=== PATIENT | male | born 1990 | race Caucasian/White ===

== ENCOUNTER 2018-12-23 10:39 | Observation (INO) | payer BC ==
[~2018-12-23] VITALS: Ht 177.8 cm; Wt 85.3 kg
[~2018-12-23 10:39] MED LIST: ALEVE220 MG PO; LANTUS 3ML100 UNITS/ SC; NOVOLOG100 UNITS1 SC
--- OUTSIDE RECORDS SUMMARY | 2018-12-23 10:42 | XMS REPORT | Summary of Care ---
Author Author Abhay Mckenzie, Griselda Organization Unknown Address [facility] Phone Unavailable Care Team Providers Care Ship Pilot Name Role Phone JONATHAN Elena, NATALIYA Unavailable Unavailable RODDY Elena, HERRERA Unavailable Unavailable VISHNU Marroquin, RENÉ Unavailable Unavailable RODDY NATANAEL PA, HERRERA GÓMEZ Unavailable Unavailable BECK CALVO PA, KIMBERLY Unavailable Unavailable DIANNE CALVO, YESICA Unavailable Unavailable KADY CALVO PA, CRISTOFER BURNS Unavailable Unavailable Unavailable Unavailable Functional Status Name Dates Details Functional status health issues are not documented Status: Name Dates Details Cognitive status health issues are not documented Status: Problems Name Dates Details Diabetic retinopathy screening (V80.2, Z13.5) Status: Active Encounter to establish care (V65.8, Z76.89) Status: Active Obesity (BMI 30-39.9) (278.00, E66.9) Status: Active Arthralgia of right foot (719.47, M25.571) Status: Active Pain of middle finger (729.5, M79.646) Status: Active Arthralgia of hand, right (719.44, M25.541) Status: Active Noncompliance with medications (V15.81, Z91.14) Status: Active Right ankle pain (719.47, M25.571) Status: Active Arthralgia of right knee (719.46, M25.561) Status: Active 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 * Quantity: 1 Refills: 2 RODDY HERRERA Elena * Start : 10-Sep-2017 Active 100 Unit Box NovoLOG FlexPen 100 UNIT/ML Subcutaneous Solution Pen-injector inject 10 u sq tid before meals + correction:MDD 50 units * Quantity: 1 Refills: 1 JONATHAN P.A., NATALIYA * Start : 16-Sep-2017 Active 5 x 3 ML Pen Harris Microlet Lancets MISC use to check blood sugars 4x/day * Quantity: 2 Refills: 3 RENÉ MARES M.D. * Start : 16-Sep-2017 Active 100 Unit Package Cefdinir 300 MG Oral Capsule TAKE 1 CAPSULE EVERY 12 HOURS DAILY. * Quantity: 20 Refills: 0 JONATHAN P.A., NATALIYA * Start : 15-Aug-2018 End : 25-Aug-2018 Active Ofloxacin 0.3 % Otic Solution 5 drops BID to left ear * Quantity: 1 Refills: 0 JONATHAN P.A., NATALIYA * Start : 15-Aug-2018 Active 10 ML Bottle Allergies and Adverse Reactions Name Dates Details No Known Drug Allergies (Allergy) Status: Active Past Medical History Name Dates Details History of diabetes mellitus (V12.29, Z86.39) Status: Resolved History of gout (V12.29, Z87.39) Status: Resolved Procedures Procedure Dates Details Procedures not documented Immunization Name Dates Details Varicella Disease on: Feb-1992 Family History Name Dates Details Family history of lung cancer (V16.1, Z80.1) Status: Active Name Dates Details Family history of malignant neoplasm of breast (V16.3, Z80.3) Status: Active Name Dates Details Family history of asthma (V17.5, Z82.5) Status: Active Name Dates Details Family history of diabetes mellitus (V18.0, Z83.3) Status: Active Family history of drug abuse (V61.42, Z81.3) Status: Active Family history of cardiac disorder (V17.49, Z82.49) Status: Active Family history of alcoholism (V17.0, Z81.1) Status: Active Name Dates Details Family history of diabetes mellitus (V18.0, Z83.3) Status: Active Family history of gout (V18.19, Z82.69) Status: Active Social History Name Dates Details - Status: Name Dates Details Never smoker Vital Signs Date Test Result Details [id number] Physical Findings 3 Status: Comments: PHQ-9 Adult Depression Screening [id number] BP Systolic 110 mm[Hg] Status: Comments: Location: LUE; Position: Sitting BP Diastolic 80 mm[Hg] Status: Comments: Location: LUE; Position: Sitting Height 70 in Status: Weight 231.5625 lb Status: Body Mass Index Calculated 33.23 kg/m2 Status: Body Surface Area Calculated 2.22 m2 Status: Temperature 97.9 f Status: Comments: Method: Temporal Respiration Rate 16 /min Status: Heart Rate 91 /min Status: Physical Findings 6 Status: Comments: Pain Scale [id number] Physical Findings 0 Status: Comments: Alcohol Screen - How many times in the past yr have you had 5 (for M) or 4 (for F) or 4 (for all > 65yrs) or more drinks in a day? Results Date Description Value Details [id number] [O] Hemoglobin A1c (in office) HEMOGLOBIN A1c 14.3 (Abnormal) Plan of Care Name Dates Details Planned Observations Planned Goals not documented Interventions Provided Medication Changes* Cefdinir 300 MG Oral Capsule - Start * Lantus SoloStar 100 UNIT/ML Subcutaneous Solution Pen-injector - Renew * NovoLOG FlexPen 100 UNIT/ML Subcutaneous Solution Pen-injector - Renew * Ofloxacin 0.3 % Otic Solution - Start Labs/Procedures/Imaging* [O] Hemoglobin A1c (in office); Done: 15 Aug 2018 * Tobacco Use Screening; Done: 15 Aug 2018 * Tobacco Use Screening; Done: 15 Aug 2018 Instructions* Patient Specific Education Given; Done: 15 Aug 2018 Plan* monitor sx. Discussed risk of malignant OE. * make f/u appt with dr. mares. * COunt carbs, monitor BS. Instructions Name Dates Details Instructions not documented Encounters Appointment; HERRERA PEREYRA P.A. Encounter Diagnosis: Problem not documented On: 10-Sep-2017 14:30 Appointment; RENÉ MARES M.D. Encounter Diagnosis: Problem not documented On: 16-Sep-2017 8:00 Appointment; [address] Encounter Diagnosis: Problem not documented On: 20-Sep-2017 8:00 Appointment; RENÉ MARES M.D. Encounter Diagnosis: Problem not documented On: 23-Oct-2017 14:20 Appointment; RENÉ MARES M.D. Encounter Diagnosis: Problem not documented On: 03-Dec-2017 8:40 Appointment; KIMBERLY SOLARES M.D. Encounter Diagnosis: Problem not documented On: 05-Mar-2018 15:30 Appointment; KIMBERLY SOLARES M.D. Encounter Diagnosis: Problem not documented On: 08-Apr-2018 16:00 Appointment; YESICA DEAN M.D. Encounter Diagnosis: Problem not documented On: 26-Jun-2018 9:00 Appointment; NATALIYA CASTILLO P.A. Encounter Diagnosis: Problem not documented On: 15-Aug-2018 11:15
[2018-12-23 11:31] LABS: BASOPHILS # (AUTO) 0.1 (0.0-0.1); BASOPHILS % 0.9 % (0.0-1.0); EOSINOPHILS # (AUTO) 0.3 (0.0-0.4); EOSINOPHILS % 2.4 % (0.0-6.0); HEMATOCRIT 47.2 % (38.2-49.6); LYMPHOCYTES # (AUTO) 2.8 (1.0-3.2); LYMPHOCYTES % 22.2 % (18.0-39.1); MEAN CORPUSCULAR HEMOGLOBIN 28.4 pg (28-32); MEAN CORPUSCULAR HGB CONC 33.9 g/dL (31-35); MEAN CORPUSCULAR VOLUME 83.8 fL (81-99); MONOCYTES # (AUTO) 1.4 (0.2-0.8); MONOCYTES % 11.2 % (4.4-11.3); NEUTROPHILS % 62.5 % (38.7-80.0); PLATELET COUNT 366 x10e3/uL (140-360); RED BLOOD COUNT 5.63 x10e6/uL (4.3-5.7); RED CELL DISTRIBUTION WIDTH 12.7 % (11.7-14.4)
[2018-12-23 11:50] LABS: ALANINE AMINOTRANSFERASE 25 IU/L (0-55); ALBUMIN 3.8 g/dL (3.5-5.0); ALBUMIN/GLOBULIN RATIO 0.8 (0.8-2.0); ALKALINE PHOSPHATASE 98 IU/L (40-150); ANION GAP 19.2 mmol/L (8-16); BLOOD UREA NITROGEN 11 mg/dL (7-26); BUN/CREATININE RATIO 10 (6-25); CALCIUM 10.8 mg/dL (8.4-10.2); CARBON DIOXIDE 23 mmol/L (22-29); CHLORIDE 96 mmol/L (98-107); CREATININE, SERUM 1.09 mg/dL (0.72-1.25); EST GLOMERULAR FILTRATION RATE > 60 ML/MIN (60-); GLUCOSE 370 mg/dL (74-118); POTASSIUM 4.2 mmol/L (3.5-5.1); SODIUM 134 mmol/L (136-145)
[2018-12-23] MEDS ORDERED: INSULIN REGULAR, HUMAN 100 UNIT/1 ML 3ML VIAL ONE ×3 (12:09→13:50)
[2018-12-23] MEDS ORDERED: CLINDAMYCIN PHOS 900MG/ 50ML 50 ML IV ONE (13:17)
[2018-12-23] MEDS ORDERED: TRAMADOL HCL 50 MG TAB PO PRN (13:30)
[2018-12-23] MEDS ORDERED: HYDROMORPHONE 1MG/1ML INJ IV PRN (13:30)
--- NOTE | 2018-12-23 13:52 | Operative Report ---
DATE OF PROCEDURE: 12/23/2018 SURGEON: Keyur Best MD PREOPERATIVE DIAGNOSES: 1. Left neck abscess. 2. Uncontrolled blood sugars. 3. Diabetes. PROCEDURES PERFORMED: Incision and drainage of abscess, and debridement of necrotic tissue of abscess of the left posterior neck. ANESTHESIA: General endotracheal. ESTIMATED BLOOD LOSS: Minimal. DRAINS: None. COMPLICATIONS: None. INDICATION AND FINDINGS: A 28-year-old insulin-dependent diabetic, admitted with an abscess of the left neck. The patient had a history of a cyst for a year. He was told to watch it. Now, that the cyst has become infected, developed an abscess and hyperglycemia. He is admitted for incision and drainage of abscess and overnight observation for blood sugar control. INTRAOPERATIVE FINDINGS: An infected epidermal inclusion cyst in the left posterior neck triangle all the way to the cyst lining and pus was drained. The patient will need a second procedure once the acute process has resolved to remove the remaining cyst to prevent recurrence. DESCRIPTION OF PROCEDURE: With the patient lying on the operative table in the supine position, after administration of general anesthesia, he was prepped and draped for incision and drainage of abscess of the left neck. His head was turned to the right. The skin overlying the fluctuant area was incised. The cavity entered, loculations broken down, debris was removed. Some of the lining was removed, but not all of it. After we removed that, we cauterized the bleeding points, irrigated with Betadine and saline, and then packed the wound with iodine. Sterile dressing was applied. The patient tolerated the procedure well, was taken to recovery room in stable condition. MD LEW GonzalezR/MODL /[id number]
[2018-12-23] MEDS ORDERED: FENTANYL CITRATE/PF 100MCG/2 ML INJ ONE ×2 (14:34→19:59)
[2018-12-23] MEDS ORDERED: PROPOFOL IV EMULSION 10 MG/ML 20 ML VIAL ONE (17:44)
[2018-12-23] MEDS ORDERED: ESMOLOL HCL 100MG/10ML 10 MG/ML VIAL ONE (17:44)
[2018-12-23] MEDS ORDERED: DEXAMETHASONE SOD PHOS INJ 4 MG/ML VIAL ONE (17:44)
[2018-12-23] MEDS ORDERED: ONDANSETRON HCL INJ 2MG/ML 2ML 2 MG/ML VIAL ONE (17:44)
[2018-12-23] MEDS ORDERED: LIDOCAINE HCL 2% LOCAL INJ 5 ML SDV VIAL INJ ONE (17:44)
[2018-12-23] MEDS ORDERED: LEVOFLOXACIN 500MG/D5W 100ML 100 ML IV SCH (18:00)
[2018-12-23] MEDS: INSULIN REGULAR, HUMAN 100 UNIT/1 ML 3ML VIAL SQ SCH (18:00)
--- NOTE | 2018-12-23 18:48 | NUR ---
The pt. was received form PACU and is in bed awake. Blood glucose is 338 and insulin coverage has been given. Vital signs are 138/96.
[2018-12-23 19:05] VITALS: BP 163/90
[2018-12-23] MEDS: SODIUM CHLORIDE 0.9% 1000ML 1,000 ML IV SCH (19:19)
[2018-12-23] MEDS ORDERED: MIDAZOLAM HCL 2 MG/2 ML VIAL ONE (19:59)
[2018-12-23 20:00] VITALS: BP 163/90
[2018-12-23] MEDS: CLINDAMYCIN PHOS 900MG/ 50ML 50 ML IV SCH (22:05)
[2018-12-24] VITALS: BP 153/99
[2018-12-24 04:00] VITALS: BP 141/97
[2018-12-24] MEDS: CLINDAMYCIN PHOS 900MG/ 50ML 50 ML IV SCH (05:06)
[2018-12-24] MEDS: SODIUM CHLORIDE 0.9% 1000ML 1,000 ML IV SCH ×2 (05:07→09:28)
[2018-12-24] MEDS: INSULIN REGULAR, HUMAN 100 UNIT/1 ML 3ML VIAL SQ SCH ×2 (05:09)
[2018-12-24 05:52] LABS: ANION GAP 18.1 mmol/L (8-16); BLOOD UREA NITROGEN 11 mg/dL (7-26); BUN/CREATININE RATIO 13 (6-25); CALCIUM 10.3 mg/dL (8.4-10.2); CARBON DIOXIDE 23 mmol/L (22-29); CHLORIDE 99 mmol/L (98-107); CREATININE, SERUM 0.85 mg/dL (0.72-1.25); EST GLOMERULAR FILTRATION RATE > 60 ML/MIN (60-); GLUCOSE 313 mg/dL (74-118); POTASSIUM 4.1 mmol/L (3.5-5.1); SODIUM 136 mmol/L (136-145)
--- NOTE | 2018-12-24 07:09 | NUR ---
Report given to day nurse. patient is resting comfortably in bed. bed is in lowest position and call rodriguez is within reach.
[2018-12-24 07:30] VITALS: BP 170/110
--- NOTE | 2018-12-24 08:00 | NUR ---
call placed to MD concerning patient's high blood pressure, per MD recheck when he arrives.
--- NOTE | 2018-12-24 08:15 | NUR ---
rechecked blood pressure and it is improving, per MD he believes it is pain, IV fluids and possibly white coat syndrome. per patient is okay to discharge and will follow up with him tomorrow in his office.
[2018-12-24 08:16] VITALS: BP 170/110
[2018-12-24 08:30] VITALS: BP 158/100
[2018-12-24] MEDS ORDERED: INSULIN GLARGINE 100 UNITS/ML VIAL SC SCH (09:00)
--- NOTE | 2018-12-24 11:35 | NUR ---
patient alert and oriented, discharge instructions given, patient verbalized understanding. IV discontinued, catheter in tact and small dressing applied. patient to be wheeled out to personal auto for friend to drive home.
== END 2018-12-24 11:35 | disposition home or self-care (01) ==
LOC: OR 10:39 → RAD HOLD 14:21 → UNDOADMOB 14:21 → PACU V 14:32 → MED/SURG 17:40 → IMCU 19:56
PROVIDERS: ADMIT Surgery; ATTEND Surgery
DX: L02.11 Cutaneous abscess of neck (principal); E11.65 Type 2 diabetes mellitus with hyperglycemia; Z79.4 Long term (current) use of insulin
CPT/HCPCS: 36415 ×2; 80048; 80053; 82948 ×2; 85025; 87071; 87075; 87205; 97597; G0378 ×2; J1100; J1817; J1956; J2001; J2250; J2405; J2704; J3010; J7030